=== PATIENT | female | born 1975 | race Two or more races ===

== ENCOUNTER 2017-02-25 16:06 | Outpatient (CLI) | payer BC | END 2017-02-25 21:02 | disposition home or self-care (01) | LOC: SMA 16:06 | PROVIDERS: ATTEND Family Medicine | DX: Z12.31 Encounter for screening mammogram for malignant neoplasm of breast (principal) | CPT/HCPCS: G0202 ==

== ENCOUNTER 2017-04-20 14:34 | Outpatient (CLI) | payer BC | END 2017-04-20 20:52 | disposition home or self-care (01) | LOC: SUS 14:34 | PROVIDERS: ATTEND Family Medicine | DX: N63.20 Unspecified lump in the left breast, unspecified quadrant (principal); R92.8 Other abnormal and inconclusive findings on diagnostic imaging of breast | CPT/HCPCS: 76642 ==

== ENCOUNTER 2017-11-04 13:04 | Outpatient (CLI) | payer BC | END 2017-11-04 19:37 | disposition home or self-care (01) | LOC: SRD 13:04 | PROVIDERS: ATTEND Family Medicine | DX: N63.20 Unspecified lump in the left breast, unspecified quadrant (principal); R92.8 Other abnormal and inconclusive findings on diagnostic imaging of breast | CPT/HCPCS: 76642 ==

== ENCOUNTER 2018-02-22 16:08 | Outpatient (CLI) | payer BC | END 2018-02-22 18:40 | disposition home or self-care (01) | LOC: SMA 16:08 | PROVIDERS: ATTEND Family Medicine | DX: Z12.31 Encounter for screening mammogram for malignant neoplasm of breast (principal) | CPT/HCPCS: 77067 ==

== ENCOUNTER 2018-11-14 12:59 | Outpatient (CLI) | payer BC | END 2018-11-14 21:08 | disposition home or self-care (01) | LOC: SUS 12:59 | PROVIDERS: ATTEND Family Medicine | DX: N60.02 Solitary cyst of left breast (principal); N60.01 Solitary cyst of right breast | CPT/HCPCS: 76641 ==

== ENCOUNTER 2019-03-09 13:12 | Outpatient (CLI) | payer BC | END 2019-03-09 21:07 | disposition home or self-care (01) | LOC: SMA 13:12 | PROVIDERS: ATTEND Family Medicine | DX: N60.01 Solitary cyst of right breast (principal); N60.02 Solitary cyst of left breast; R92.1 Mammographic calcification found on diagnostic imaging of breast; R92.2 Inconclusive mammogram | CPT/HCPCS: 76641; 77066 ==